=== PATIENT | female | born 1970 | race Caucasian/White ===

== ENCOUNTER 2023-12-18 08:39 | Emergency (ER) | payer OTHER ==
[~2023-12-18] VITALS: Ht 175.2 cm; Wt 108.0 kg
[2023-12-18] MEDS ORDERED: VIBRAMYCIN100 MG PO (09:12)
[2023-12-18] MEDS ORDERED: PREDNISONE10 M1 PO (09:12)
== END 2023-12-18 09:18 | disposition home or self-care (01) ==
LOC: ED 08:39
DX: S90.562A Insect bite (nonvenomous), left ankle, initial encounter (principal); Z98.890 Other specified postprocedural states; W57.XXXA Bitten or stung by nonvenomous insect and other nonvenomous arthropods, initial encounter; Y93.89 Activity, other specified; Y92.89 Other specified places as the place of occurrence of the external cause; Y99.8 Other external cause status